=== PATIENT | male | born 1965 | race Caucasian/White ===

== ENCOUNTER 2018-05-22 06:52 | Day surgery (SDC) | payer OTHER ==
[~2018-05-22] VITALS: Ht 175.3 cm; Wt 129.3 kg
[~2018-05-22 06:52] MED LIST: ALLO100T PO; ASPI81TA85 PO; DOXA1TAB67 PO; GEMF600T5 PO; HCTZ/TRIAMTERENE PO; K-TA10TA2 PO; LOSA100T50 PO; LOVA1CAP17 PO; METF500T13 PO; METO100T5 PO; MULTCAP PO; NS 1,000 ML IV ONE; RANI150T PO; ROSU10TA5 PO; TEST200I14 IM; VITA500T PO
[2018-05-22] MEDS ORDERED: PROPOFOL 200 MG/20 ML VIAL As Ordered ONE (07:13)
[2018-05-22] MEDS ORDERED: LIDOCAINE 2% INJ 100 MG/5 ML SDV (FOR ANES.) As Ordered ONE (07:13)
--- NOTE | 2018-05-22 08:30 | ROOR ---
Patient Name: Steven Trevino Procedure Date: 05/22/2018 8:08 AM Date of : 1965 Age: 52 Room: [facility] Gender: Male Note Status: Finalized Procedure: Colonoscopy Indications: Screening for colorectal malignant neoplasm Providers: DO [place] MD: [facility], Admin. Requesting Provider: Medicines: Propofol per Anesthesia Complications: No immediate complications. Procedure: Pre-Anesthesia Assessment: - Prior to the procedure, a History and Physical was performed, and patient medications and allergies were reviewed. The patient is competent. The risks and benefits of the procedure and the sedation options and risks were discussed with the patient. All questions were answered and informed consent was obtained. Patient identification and proposed procedure were verified by the physician, the nurse, the anesthesiologist and the emergency room technician in the endoscopy suite. Mental Status Examination: alert and oriented. Airway Examination: normal oropharyngeal airway and neck mobility. Respiratory Examination: clear to auscultation. CV Examination: normal. Prophylactic Antibiotics: The patient does not require prophylactic antibiotics. Prior Anticoagulants: The patient has taken no previous anticoagulant or antiplatelet agents. ASA Grade Assessment: II - A patient with mild systemic disease. After reviewing the risks and benefits, the patient was deemed in satisfactory condition to undergo the procedure. The anesthesia plan was to use monitored anesthesia care (MAC). Immediately prior to administration of medications, the patient was re-assessed for adequacy to receive sedatives. The heart rate, respiratory rate, oxygen saturations, blood pressure, adequacy of pulmonary ventilation, and response to care were monitored throughout the procedure. The physical status of the patient was re-assessed after the procedure. The Colonoscope was introduced through the anus and advanced to the cecum, identified by appendiceal orifice and ileocecal valve. The colonoscopy was performed without difficulty. The patient tolerated the procedure well. Findings: The perianal exam findings include non-thrombosed internal hemorrhoids and internal hemorrhoids that prolapse with straining, but spontaneously regress to the resting position (Grade II). Multiple small and large-mouthed diverticula were found in the sigmoid colon and descending colon. The exam was otherwise without abnormality on direct and retroflexion views. Impression: - Non-thrombosed internal hemorrhoids and internal hemorrhoids that prolapse with straining, but spontaneously regress to the resting position (Grade II) found on perianal exam. - Diverticulosis in the sigmoid colon and in the descending colon. - The examination was otherwise normal on direct and retroflexion views. - No specimens collected. Recommendation: - Patient has a contact number available for emergencies. The signs and symptoms of potential delayed complications were discussed with the patient. Return to normal activities tomorrow. Written discharge instructions were provided to the patient. - Return to my office PRN. - Repeat colonoscopy in 5-10 years for screening purposes. Pasquale Gant DO 05/22/2018 8:30:22 AM This report has been signed electronically. Number of Addenda: 0 Note Initiated On: 05/22/2018 8:08 AM Estimated Blood Loss: Estimated blood loss: none.
[2018-05-22 08:45] VITALS: BP 120/82
== END 2018-05-22 08:57 | disposition home or self-care (01) ==
LOC: M OPP 06:52
PROVIDERS: ATTEND Surgery
DX: K64.1 Second degree hemorrhoids (principal); K57.30 Diverticulosis of large intestine without perforation or abscess without bleeding; Z12.11 Encounter for screening for malignant neoplasm of colon

== ENCOUNTER → 2023-09-10 | Outpatient (CLI) | payer OTHER ==
[~2023-09-10] MED LIST changes: -ASPI81TA85 PO; +ASPI81TA86 PO; +ISOVUE-300 61% 100ML VIAL As Ordered ONE; -K-TA10TA2 PO; +LIDOCAINE 1% MDV 20ML VIAL As Ordered ONE; +LOSA100T46 PO; -LOSA100T50 PO; -NS 1,000 ML IV ONE; +POTA-165 PO; +PROHANCE 279.3MG/ML 5ML VIAL As Ordered ONE; -ROSU10TA5 PO; +ROSU10TA61 PO; +VITA-243 PO; -VITA500T PO
== END ==
LOC: M RAD 12:25
PROVIDERS: ATTEND Physician Assistant Surgical
DX: M25.311 Other instability, right shoulder (principal); S46.011A Strain of muscle(s) and tendon(s) of the rotator cuff of right shoulder, initial encounter; X58.XXXA Exposure to other specified factors, initial encounter; Y92.9 Unspecified place or not applicable
CPT/HCPCS: 23350; 73223; 77002; A9576; Q9967